=== PATIENT | male | born 1955 | race Caucasian/White ===

== ENCOUNTER 2018-03-26 10:35 | Inpatient (IN) ==
[2018-03-26] MEDS ORDERED: Bisacodyl 10 MG RECTAL SUPPOSITORY RC PRN (19:39)
[2018-03-27] MEDS: diazePAM 5 MG TABLET PO PRN (00:33)
[2018-03-27] MEDS: *HR* OxyCODONE Immed Rel 5 MG TABLET PO PRN ×5 (00:33→23:07)
[2018-03-27] MEDS: Multivit/Ca/Min/Fe/FA 1 TAB TABLET PO SCH (08:53)
[2018-03-27] MEDS: *HR* Metformin 500 MG TABLET PO SCH ×2 (08:53→17:30)
[2018-03-27] MEDS: Sennosides 8.6 MG TABLET PO SCH ×2 (08:53→20:02)
[2018-03-27 09:18] LABS: Basophils % 0.3 %; Eosinophils % 0.4 %; Hematocrit 33.2 % (37.5-50.1); Immature Granulocytes % 0.4 % (0-4); Lymphocytes # 2.2 K/mcL (0.6-4.6); Lymphocytes % 20.8 %; Mean Corpuscular HGB Conc 33.1 g/dL (31.6-35.5); Mean Corpuscular Hemoglobin 29.4 pg (28.0-33.3); Mean Corpuscular Volume 88.8 fL (83.0-100.0); Mean Platelet Volume 9.6 fL (9.4-12.4); Monocytes % 9.4 %; Neutrophils # 7.1 K/mcL (1.6-8.9); Platelet Count 225 K/mcL (140-400); Red Blood Count 3.74 M/mcL (4.19-5.50); Red Cell Distribution Width 14.1 % (11.5-14.5); Segmented Neutrophils % 68.7 %
[2018-03-27 09:22] LABS: INR 1.4; Prothrombin Time 15.7 Seconds (9.4-12.1)
[2018-03-27 09:36] LABS: BUN/Creatinine Ratio 23 (6-26); Blood Urea Nitrogen 13 mg/dL (8-23); Calcium 8.7 mg/dL (8.6-10.3); Carbon Dioxide 30 mEq/L (23-29); Chloride 97 mEq/L (98-107); Glucose 191 mg/dL (70-105); Osmolality,Calculated 283 (280-300); Potassium 3.9 mEq/L (3.5-5.1); Sodium 134 mEq/L (136-145); eGFR For Non-African Americans > 60 (> 60)
--- NOTE | 2018-03-27 10:40 | Internal Med History&Physical ---
Date of Encounter: 03/27/18 Time of Encounter: 10:00 Assessment and Plan (1) S/P spinal fusion Current visit: Yes Status: Acute Routine care/management per PT/OT/RT. (2) Physical deconditioning Current visit: Yes Status: Acute - Routine care and management per PT/OT/RT. (3) Diabetes type 2, controlled Current visit: Yes Status: Chronic Continue home metformin. Will also provide SSI and hypoglycemia protocol here. 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 Qualifiers: Hypertension type: essential hypertension Qualified Code(s): I10 - Essential (primary) hypertension (5) Hyperlipidemia Current visit: Yes Status: Chronic Continue home simvastatin. Qualifiers: Hyperlipidemia type: unspecified Qualified Code(s): E78.5 - Hyperlipidemia , unspecified (6) Hypothyroidism Current visit: Yes Status: Chronic Continue home levothyroxine. Qualifiers: Hypothyroidism type: unspecified Qualified Code(s): E03.9 - Hypothyroidism , unspecified Internal Medicine - H&P: HPI Chief complaint: rehab Admitted From: Hospital to Hospital Transfer History of present illness: Mr. Lewis is a 63 year old male who is now s/p spinal fusion at [facility] and has been transferred to us for rehab. At the time of this encounter, the patient has no particular concern and actually feels pretty well. In fact, the patient has been able to move his LE more than before. Patient reports no fever, chills , CP, palpitations, SOB, n/v, seizure, or bleeding symptoms over the past 24-48 hours. Past Med Surg Social Fam HX - Past Medical History Medical history: arthritis Psychiatric history: no psych history - Past Surgical History Additional surgical history: lumbar fusion - Social History Smoking Status: Former smoker Alcohol use: none Drug use: none - Additional Family History Additional family history: Aunt has DM. COPD runs in the family. Internal Medicine - H&P: Meds 3 Allergy/AdvReac Type Severity Reaction Status Date / Time SAM Inhibitors Allergy Unknown Cough Verified 03/27/18 00:21 amlodipine [From Norvasc] Allergy Swelling Verified 03/27/18 00:21 of Lip/Tongue/Throat gabapentin Allergy Hallucinati Verified 03/27/18 00:21 ng All Systems PM: A 10-system review of systems was performed and is negative for pertinent findings except as documented above in the HPI. Review of systems: 10 systems reviewed and (-) other than mentioned per HPI. - Constitutional Vitals: Temp Pulse Resp BP Pulse Ox 98.5 F 86 16 135/69 89 03/27/18 07:55 03/27/18 07:55 03/27/18 04:54 03/27/18 07:55 03/27/18 07:55 Exam: Gen: A&Ox3, NAD. HEENT: NCAT. Neck: No palpable lymphadenopathy or thyromegaly. CV: RRR, S1S2. No murmur. Capillary refill < 2 seconds. Pulm: CTAB. Abd: (+)BS. NDNT. Neuro: Generalized weakness, otherwise non-focal. Skin: No rash. Ext: No pitting edema. Internal Med - H&P Results - Labs CBC & Chem 7: 03/27/18 09:10 03/27/18 09:10 Labs: Short CBC 03/27/18 Range/Units 09:10 WBC 10.4 (4.3-11.1) K/mcL Hgb 11.0 L (12.9-16.9) g/dL Hct 33.2 L (37.5-50.1) % Plt Count 225 (140-400) K/mcL Neutrophils # 7.1 (1.6-8.9) K/mcL BMP 03/27/18 09:10 Sodium 134 L Potassium 3.9 Chloride 97 L Carbon Dioxide 30 H BUN 13 Creatinine 0.57 L Glucose 191 H Calcium 8.7
[2018-03-28] MEDS: *HR* OxyCODONE Immed Rel 5 MG TABLET PO PRN ×3 (03:51→20:03)
[2018-03-28 04:54] LABS: Hematocrit 30.7 % (37.5-50.1); Hemoglobin 10.4 g/dL (12.9-16.9); Mean Corpuscular HGB Conc 33.9 g/dL (31.6-35.5); Mean Corpuscular Hemoglobin 29.4 pg (28.0-33.3); Mean Corpuscular Volume 86.7 fL (83.0-100.0); Platelet Count 234 K/mcL (140-400); Red Blood Count 3.54 M/mcL (4.19-5.50); Red Cell Distribution Width 14.2 % (11.5-14.5)
--- NOTE | 2018-03-28 08:10 | Internal Med Progress Note ---
Date of Encounter: 03/28/18 Time of Encounter: 08:00 - Assessment and plan (1) S/P spinal fusion Current Visit: Yes Status: Acute Assessment and plan: Routine care/management per PT/OT/RT. (2) Physical deconditioning Current Visit: Yes Status: Acute Assessment and plan: - Routine care and management per PT/OT/RT. (3) Diabetes type 2, controlled Current Visit: Yes Status: Chronic Assessment and plan: Continue home metformin. Will also provide SSI and hypoglycemia protocol here. Qualifiers: Diabetes mellitus hcc coders insulin use: without hcc coders use Diabetes mellitus complication status: without complication Qualified Code(s): E11.9 - Type 2 diabetes mellitus without complications (4) Hypertension Current Visit: Yes Status: Acute Assessment and plan: Continue home losartan and metoprolol. Qualifiers: Hypertension type: essential hypertension Qualified Code(s): I10 - Essential (primary) hypertension (5) Hyperlipidemia Current Visit: Yes Status: Chronic Assessment and plan: Continue home simvastatin. Qualifiers: Hyperlipidemia type: unspecified Qualified Code(s): E78.5 - Hyperlipidemia , unspecified (6) Hypothyroidism Current Visit: Yes Status: Chronic Assessment and plan: Continue home levothyroxine. Qualifiers: Hypothyroidism type: unspecified Qualified Code(s): E03.9 - Hypothyroidism , unspecified - Time Spent With Patient less than 15 minutes - Subjective Interval history: Feeling "fine." Would like to drink. Overall no particular concern or complaint at this time. - Constitutional Vitals: Temp Pulse Resp BP Pulse Ox 98.3 F 69 16 133/76 95 03/28/18 08:00 03/28/18 08:00 03/28/18 08:00 03/28/18 08:00 03/28/18 08:00 Exam: Gen: A&Ox3, NAD. HEENT: NCAT. Neck: No palpable lymphadenopathy or thyromegaly. CV: RRR, S1S2. No murmur. Capillary refill < 2 seconds. Pulm: CTAB. Abd: (+)BS. NDNT. Neuro: Generalized weakness, otherwise non-focal. Skin: No rash. Ext: No pitting edema. Internal Medicine: Result - Labs CBC & Chem 7: 03/28/18 04:44 03/27/18 09:10 Labs: Short CBC 03/27/18 03/28/18 Range/Units 09:10 04:44 WBC 10.4 10.4 (4.3-11.1) K/mcL Hgb 11.0 L 10.4 L (12.9-16.9) g/dL Hct 33.2 L 30.7 L (37.5-50.1) % Plt Count 225 234 (140-400) K/mcL Neutrophils # 7.1 (1.6-8.9) K/mcL BMP 03/27/18 09:10 Sodium 134 L Potassium 3.9 Chloride 97 L Carbon Dioxide 30 H BUN 13 Creatinine 0.57 L Glucose 191 H Calcium 8.7 - ABG Interpretation ABG results: PT/INR, D-dimer PT 15.7 Seconds (9.4-12.1) H 03/27/18 09:10 Consult Discharge Plan - Plan Referrals: Tommy Ramos DO [Primary Care Provider] -
[2018-03-28] MEDS: *HR* Metformin 500 MG TABLET PO SCH ×2 (08:50→16:59)
[2018-03-28] MEDS: Multivit/Ca/Min/Fe/FA 1 TAB TABLET PO SCH (08:51)
[2018-03-28] MEDS: Sennosides 8.6 MG TABLET PO SCH ×2 (08:52→20:02)
[2018-03-28] MEDS ORDERED: Cyanocobalamin (B-12) 1,000 MCG TABLET PO ONE (09:00)
[2018-03-29] MEDS: *HR* OxyCODONE Immed Rel 5 MG TABLET PO PRN ×3 (00:28→19:33)
[2018-03-29 06:20] LABS: Basophils % 0.2 %; Eosinophils # 0.1 K/mcL (0.0-0.6); Eosinophils % 1.2 %; Hematocrit 30.2 % (37.5-50.1); Hemoglobin 10.3 g/dL (12.9-16.9); Immature Granulocytes % 0.6 % (0-4); Lymphocytes # 1.9 K/mcL (0.6-4.6); Mean Corpuscular HGB Conc 34.1 g/dL (31.6-35.5); Mean Corpuscular Hemoglobin 29.5 pg (28.0-33.3); Mean Corpuscular Volume 86.5 fL (83.0-100.0); Monocytes # 1.1 K/mcL (0.0-1.3); Monocytes % 10.6 %; Neutrophils # 6.8 K/mcL (1.6-8.9); Platelet Count 234 K/mcL (140-400); Red Blood Count 3.49 M/mcL (4.19-5.50); Red Cell Distribution Width 14.3 % (11.5-14.5); Segmented Neutrophils % 68.4 %
[2018-03-29 06:32] LABS: BUN/Creatinine Ratio 19 (6-26); Blood Urea Nitrogen 11 mg/dL (8-23); Calcium 8.4 mg/dL (8.6-10.3); Carbon Dioxide 31 mEq/L (23-29); Chloride 97 mEq/L (98-107); Glucose 131 mg/dL (70-105); Osmolality,Calculated 279 (280-300); Potassium 3.8 mEq/L (3.5-5.1); Sodium 134 mEq/L (136-145); eGFR For Non-African Americans > 60 (> 60)
[2018-03-29] MEDS: Sennosides 8.6 MG TABLET PO SCH ×2 (08:28→19:32)
[2018-03-29] MEDS: *HR* Metformin 500 MG TABLET PO SCH ×2 (08:28→17:07)
[2018-03-29] MEDS: Multivit/Ca/Min/Fe/FA 1 TAB TABLET PO SCH (08:29)
--- NOTE | 2018-03-29 10:36 | Internal Med Progress Note ---
Date of Encounter: 03/29/18 Time of Encounter: 10:00 - Assessment and plan (1) S/P spinal fusion Current Visit: Yes Status: Acute Assessment and plan: Routine care/management per PT/OT/RT. (2) Physical deconditioning Current Visit: Yes Status: Acute Assessment and plan: - Routine care and management per PT/OT/RT. (3) Diabetes type 2, controlled Current Visit: Yes Status: Chronic Assessment and plan: Continue home metformin. Will also provide SSI and hypoglycemia protocol here. 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 Qualifiers: Hypertension type: essential hypertension Qualified Code(s): I10 - Essential (primary) hypertension (5) Hyperlipidemia Current Visit: Yes Status: Chronic Assessment and plan: Continue home simvastatin. Qualifiers: Hyperlipidemia type: unspecified Qualified Code(s): E78.5 - Hyperlipidemia , unspecified (6) Hypothyroidism Current Visit: Yes Status: Chronic Assessment and plan: Continue home levothyroxine. Qualifiers: Hypothyroidism type: unspecified Qualified Code(s): E03.9 - Hypothyroidism , unspecified - Time Spent With Patient less than 15 minutes - Subjective Interval history: Feeling "fine." Would like to intensify PT. - Constitutional Vitals: Temp Pulse Resp BP Pulse Ox 99.0 F 75 18 165/75 94 03/29/18 07:05 03/29/18 07:05 03/29/18 07:05 03/29/18 07:05 03/29/18 07:05 Exam: Gen: A&Ox3, NAD. HEENT: NCAT. Neck: No palpable lymphadenopathy or thyromegaly. CV: RRR, S1S2. No murmur. Capillary refill < 2 seconds. Pulm: CTAB. Abd: (+)BS. NDNT. Neuro: Generalized weakness, otherwise non-focal. Skin: No rash. Ext: No pitting edema. Internal Medicine: Result - Labs CBC & Chem 7: 03/29/18 06:00 03/29/18 06:00 Labs: Short CBC 03/29/18 Range/Units 06:00 WBC 10.0 (4.3-11.1) K/mcL Hgb 10.3 L (12.9-16.9) g/dL Hct 30.2 L (37.5-50.1) % Plt Count 234 (140-400) K/mcL Neutrophils # 6.8 (1.6-8.9) K/mcL BMP 03/29/18 06:00 Sodium 134 L Potassium 3.8 Chloride 97 L Carbon Dioxide 31 H BUN 11 Creatinine 0.58 L Glucose 131 H Calcium 8.4 L - ABG Interpretation ABG results: PT/INR, D-dimer PT 15.7 Seconds (9.4-12.1) H 03/27/18 09:10 Consult Discharge Plan - Plan Referrals: Tommy Ramos DO [Primary Care Provider] -
[2018-03-30] MEDS: *HR* OxyCODONE Immed Rel 5 MG TABLET PO PRN ×4 (01:27→20:56)
[2018-03-30] MEDS: Sennosides 8.6 MG TABLET PO SCH ×2 (08:44→19:59)
[2018-03-30] MEDS: Multivit/Ca/Min/Fe/FA 1 TAB TABLET PO SCH (08:44)
[2018-03-30] MEDS: Aspirin 81 MG TAB.CHEW PO SCH (08:44)
[2018-03-30] MEDS: *HR* Metformin 500 MG TABLET PO SCH ×2 (08:44→18:08)
[2018-03-30] MEDS: *HR* Heparin 5,000 UNIT/ML VIAL SQ SCH ×2 (12:30→18:08)
--- NOTE | 2018-03-30 13:53 | Internal Med Progress Note ---
Date of Encounter: 03/30/18 Time of Encounter: 13:51 - Assessment and plan (1) S/P spinal fusion Current Visit: Yes Status: Acute Assessment and plan: Continue PT and OT. Will follow progress. Follow up with surgeon as scheduled. Continue current pain regimen. (2) Diabetes type 2, controlled Current Visit: Yes Status: Chronic Assessment and plan: Controlled with current medication. Monitor fingerstick blood sugars. Will adjust medications as necessary. Qualifiers: Diabetes mellitus retirement insulin use: without long term care pharmacist use Diabetes mellitus complication status: without complication Qualified Code(s): E11.9 - Type 2 diabetes mellitus without complications (3) Hypertension Current Visit: Yes Status: Acute Assessment and plan: Controlled with current medication. Monitor blood pressure. Qualifiers: Hypertension type: essential hypertension Qualified Code(s): I10 - Essential (primary) hypertension - Time Spent With Patient less than 15 minutes - Subjective Interval history: participating well with therapy. States pain is controlled with current pain medication. Denies fever, chills, nausea vomiting or diarrhea. No other complaints at this time. - Constitutional Vitals: Temp Pulse Resp BP Pulse Ox 98.1 F 85 16 144/73 96 03/30/18 08:45 03/30/18 08:45 03/30/18 08:45 03/30/18 08:45 03/30/18 08:45 General appearance: Present: cooperative, A&O X 3, pleasant, no acute distress, answers questions appropriately - Head Head exam: Present: atraumatic, normocephalic - Eye Eye exam: Present: PERRL, conjuntiva pink, sclera anicteric Pupils: Present: PERRL - Neck Neck exam general surgery: Present: supple, trachea midline. Absent: lymphadenopathy - Respiratory Respiratory exam: Present: CTAB. Absent: accessory muscle use, rales, rhonchi, wheezes - Cardiovascular Cardiovascular exam: Present: RRR, +S1, +S2. Absent: diastolic murmur, gallop, rubs, systolic murmur - GI/Abdominal GI/Abdominal exam: Present: normal bowel sounds, soft, no peritoneal signs. Absent: distended, tenderness - Extremities Exam Extremities exam: Present: warm, radial pulses palpable and symmetrical. Absent : calf tenderness, cyanotic, pedal edema - Incison Comments: Incision, dressing dry and intact. - Neurological Exam Neurological exam: Present: CN II-XII intact, oriented X3, no focal deficits. Absent: pronater drift, facial droop, speech deficit - Skin Skin exam: Present: dry, intact Internal Medicine: Result - Labs CBC & Chem 7: 03/29/18 06:00 03/29/18 06:00 - ABG Interpretation ABG results: PT/INR, D-dimer PT 15.7 Seconds (9.4-12.1) H 03/27/18 09:10 Consult Discharge Plan - Plan Referrals: Tommy Ramos DO [Primary Care Provider] -
[2018-03-31] MEDS: *HR* OxyCODONE Immed Rel 5 MG TABLET PO PRN ×4 (01:59→19:59)
[2018-03-31] MEDS: *HR* Heparin 5,000 UNIT/ML VIAL SQ SCH ×2 (05:42→18:36)
[2018-03-31] MEDS: Aspirin 81 MG TAB.CHEW PO SCH (08:31)
[2018-03-31] MEDS: Multivit/Ca/Min/Fe/FA 1 TAB TABLET PO SCH (08:31)
[2018-03-31] MEDS: *HR* Metformin 500 MG TABLET PO SCH ×2 (08:32→18:36)
[2018-03-31] MEDS: Sennosides 8.6 MG TABLET PO SCH ×2 (08:32→19:59)
--- NOTE | 2018-03-31 13:46 | Internal Med Progress Note ---
Date of Encounter: 03/31/18 Time of Encounter: 13:43 - Assessment and plan (1) S/P spinal fusion Current Visit: Yes Status: Acute Assessment and plan: Continue PT and OT. Will follow progress. Follow up with surgeon as scheduled on 04/07. Continue current pain regimen. (2) Diabetes type 2, controlled Current Visit: Yes Status: Chronic Assessment and plan: Controlled with current medication. Monitor fingerstick blood sugars. Will adjust medications as necessary. Qualifiers: Diabetes mellitus penitentiary insulin use: without penitentiary use Diabetes mellitus complication status: without complication Qualified Code(s): E11.9 - Type 2 diabetes mellitus without complications (3) Hypertension Current Visit: Yes Status: Acute Assessment and plan: Controlled with current medication. Monitor blood pressure. Qualifiers: Hypertension type: essential hypertension Qualified Code(s): I10 - Essential (primary) hypertension - Time Spent With Patient less than 15 minutes - Subjective Interval history: participating well with therapy. States pain is controlled with current pain medication. Denies fever, chills, nausea vomiting or diarrhea. Has pain in right leg and weakness. States that he had this prior to surgery. Explain that it is a lot to remember on how to safely ambulate, transfer and use Walker in wheelchair in therapy. Has not been used to doing things this way at home. Last bowel movement was prior to admission. Will take suppository today. Maintaining appetite and hydration. - Constitutional Vitals: Temp Pulse Resp BP Pulse Ox 98.3 F 72 17 163/78 92 03/31/18 07:11 03/31/18 07:11 03/31/18 07:11 03/31/18 07:11 03/31/18 07:11 General appearance: Present: cooperative, A&O X 3, pleasant, no acute distress, answers questions appropriately - Head Head exam: Present: atraumatic, normocephalic - Eye Eye exam: Present: PERRL, conjuntiva pink, sclera anicteric Pupils: Present: PERRL - Neck Neck exam general surgery: Present: supple, trachea midline. Absent: lymphadenopathy - Respiratory Respiratory exam: Present: CTAB. Absent: accessory muscle use, rales, rhonchi, wheezes - Cardiovascular Cardiovascular exam: Present: RRR, +S1, +S2. Absent: diastolic murmur, gallop, rubs, systolic murmur - GI/Abdominal GI/Abdominal exam: Present: normal bowel sounds, soft, no peritoneal signs. Absent: distended, tenderness - Extremities Exam Extremities exam: Present: warm, radial pulses palpable and symmetrical. Absent : calf tenderness, cyanotic, pedal edema - Incison Comments: Lumbar incision dressing dry and intact. - Neurological Exam Neurological exam: Present: CN II-XII intact, oriented X3, no focal deficits. Absent: pronater drift, facial droop, speech deficit - Skin Skin exam: Present: dry, intact Internal Medicine: Result - Labs CBC & Chem 7: 03/29/18 06:00 03/29/18 06:00 - ABG Interpretation ABG results: PT/INR, D-dimer PT 15.7 Seconds (9.4-12.1) H 03/27/18 09:10 Consult Discharge Plan - Plan Referrals: Tommy Ramos DO [Primary Care Provider] -
[2018-04-01] MEDS: *HR* OxyCODONE Immed Rel 5 MG TABLET PO PRN ×4 (00:52→21:10)
[2018-04-01] MEDS: *HR* Heparin 5,000 UNIT/ML VIAL SQ SCH ×2 (05:58→17:19)
[2018-04-01] MEDS: *HR* Metformin 500 MG TABLET PO SCH ×2 (08:15→17:17)
[2018-04-01] MEDS: Multivit/Ca/Min/Fe/FA 1 TAB TABLET PO SCH (08:15)
[2018-04-01] MEDS: Aspirin 81 MG TAB.CHEW PO SCH (08:15)
[2018-04-01] MEDS: Sennosides 8.6 MG TABLET PO SCH ×2 (08:16→20:02)
--- NOTE | 2018-04-01 12:10 | Internal Med Progress Note ---
Date of Encounter: 04/01/18 Time of Encounter: 12:08 - Assessment and plan (1) S/P spinal fusion Current Visit: Yes Status: Acute Assessment and plan: No acute issues. Patient's lumbar incision remains healthy and appears to be healing well. Patient continues to have moderate weakness to bilateral lower extremities continues to show right foot drop. Patient also states that he continues to have some decreased sensation to the right anterior lateral leg. No acute neurological deficits noted since surgery. Patient continues to have pain to his lower back and right leg which are likely surgical pain. No acute radicular symptoms noted. Patient states that physical therapy has been progressing well. (2) Diabetes type 2, controlled Current Visit: Yes Status: Chronic Assessment and plan: No acute issues. Patient's fingersticks have remained less than 150 on most checks. We will continue with current coverage. Qualifiers: Diabetes mellitus senior living insulin use: without intermediate teacher use Diabetes mellitus complication status: without complication Qualified Code(s): E11.9 - Type 2 diabetes mellitus without complications (3) Hypertension Current Visit: Yes Status: Acute Assessment and plan: Vital signs are stable. We will continue with current medications. Qualifiers: Hypertension type: essential hypertension Qualified Code(s): I10 - Essential (primary) hypertension - Time Spent With Patient less than 15 minutes - Subjective Interval history: Patient currently states that he continues to have moderate pain to his lower back with some radiation to the right hip. Patient states that his symptoms of radicular pain that it radiated down the right leg has subsided somewhat since his surgery. Patient also states he continues to have some decreased sensation to his right lateral leg, which remains unchanged since preop. Patient states that his pain has been fairly well-controlled with current oral medications and that his pain usually is triggered by mobilization or when sitting in a chair too long.. States that physical therapy has been progressing well. - Constitutional Vitals: Temp Pulse Resp BP Pulse Ox 98.3 F 74 17 158/77 96 04/01/18 07:21 04/01/18 07:21 04/01/18 07:21 04/01/18 07:21 04/01/18 07:21 General appearance: Present: cooperative, A&O X 3, pleasant, no acute distress, answers questions appropriately - Head Head exam: Present: atraumatic, normocephalic - Eye Eye exam: Present: PERRL, conjuntiva pink, sclera anicteric Pupils: Present: PERRL - Neck Neck exam general surgery: Present: supple, trachea midline. Absent: lymphadenopathy - Respiratory Respiratory exam: Present: CTAB. Absent: accessory muscle use, rales, rhonchi, wheezes - Cardiovascular Cardiovascular exam: Present: RRR, +S1, +S2. Absent: diastolic murmur, gallop, rubs, systolic murmur - GI/Abdominal GI/Abdominal exam: Present: normal bowel sounds, soft, no peritoneal signs. Absent: distended, tenderness - Extremities Exam Extremities exam: Present: warm, radial pulses palpable and symmetrical. Absent : calf tenderness, cyanotic, pedal edema - Back Exam Additional comments: Patient has a midline lumbar incision that appears healthy, intact and to be healing well - Neurological Exam Neurological exam: Present: CN II-XII intact, oriented X3. Absent: pronater drift, facial droop, speech deficit Additional comments: Patient continues to have moderate weakness to bilateral lower extremities at 4/ 5. Noted right foot drop with dorsiflexion of 1/5. Slight decrease in sensation noted to right anterior lateral leg. - Skin Skin exam: Present: dry, intact Internal Medicine: Result - Labs CBC & Chem 7: 03/29/18 06:00 03/29/18 06:00 - ABG Interpretation ABG results: PT/INR, D-dimer PT 15.7 Seconds (9.4-12.1) H 03/27/18 09:10 Consult Discharge Plan - Plan Referrals: Tommy Ramos DO [Primary Care Provider] -
[2018-04-01] MEDS: diazePAM 5 MG TABLET PO PRN (12:52)
[2018-04-01 19:13] LABS: Basophils % 0.2 %; Eosinophils # 0.2 K/mcL (0.0-0.6); Hematocrit 29.8 % (37.5-50.1); Hemoglobin 10.1 g/dL (12.9-16.9); Immature Granulocytes % 0.8 % (0-4); Lymphocytes % 20.2 %; Mean Corpuscular HGB Conc 33.9 g/dL (31.6-35.5); Mean Corpuscular Hemoglobin 29.1 pg (28.0-33.3); Mean Corpuscular Volume 85.9 fL (83.0-100.0); Mean Platelet Volume 8.7 fL (9.4-12.4); Monocytes # 0.9 K/mcL (0.0-1.3); Monocytes % 9.6 %; Neutrophils # 6.6 K/mcL (1.6-8.9); Platelet Count 262 K/mcL (140-400); Red Blood Count 3.47 M/mcL (4.19-5.50); Red Cell Distribution Width 14.2 % (11.5-14.5); Segmented Neutrophils % 67.2 %
[2018-04-01 20:15] LABS: Bilirubin,Urine Negative (Negative); Blood,Urine Negative (Negative); Clarity,Urine Clear (Clear); Color,Urine Yellow (Yellow); Glucose,Urine (UA) Normal (Normal); Ketones,Urine Negative (Negative); Leukocyte Esterase,Urine Negative (Negative); Nitrite,Urine Negative (Negative); PH,Urine 7.5 pH Units (5.0-8.0); Protein,Urine Negative (Neg-Trace); Specific Gravity,Urine 1.015 (1.010-1.025)
[2018-04-02] MEDS: *HR* OxyCODONE Immed Rel 5 MG TABLET PO PRN ×2 (01:54→13:22)
[2018-04-02] MEDS: *HR* Heparin 5,000 UNIT/ML VIAL SQ SCH ×2 (06:10→17:44)
[2018-04-02] MEDS: *HR* Metformin 500 MG TABLET PO SCH ×2 (08:16→17:44)
[2018-04-02] MEDS: Aspirin 81 MG TAB.CHEW PO SCH (08:16)
[2018-04-02] MEDS: Sennosides 8.6 MG TABLET PO SCH ×2 (08:17→19:42)
[2018-04-02] MEDS: diazePAM 5 MG TABLET PO PRN ×2 (08:17→17:44)
[2018-04-02] MEDS: Multivit/Ca/Min/Fe/FA 1 TAB TABLET PO SCH (08:17)
--- NOTE | 2018-04-02 15:39 | Internal Med Progress Note ---
Date of Encounter: 04/02/18 Time of Encounter: 15:37 - Assessment and plan (1) S/P spinal fusion Current Visit: Yes Status: Acute Assessment and plan: No acute issues. Patient's lumbar incision remains healthy and appears to be healing well. Patient continues to have moderate weakness to bilateral lower extremities continues to show right foot drop. Patient also states that he continues to have some decreased sensation to the right anterior lateral leg. No acute neurological deficits noted since surgery. Patient continues to have pain to his lower back and right leg which are likely surgical pain. Patient states he continues to have acute radicular symptoms of pain that radiates down the right hip and some muscle spasms that accompany. Patient states that physical therapy has been progressing well. (2) Diabetes type 2, controlled Current Visit: Yes Status: Chronic Assessment and plan: No acute issues. Patient's fingersticks have remained less than 150 on most checks. We will continue with current coverage. Qualifiers: Diabetes mellitus group home insulin use: without petroleum terminal plant operator use Diabetes mellitus complication status: without complication Qualified Code(s): E11.9 - Type 2 diabetes mellitus without complications (3) Hypertension Current Visit: Yes Status: Acute Assessment and plan: Vital signs are stable. We will continue with current medications. Qualifiers: Hypertension type: essential hypertension Qualified Code(s): I10 - Essential (primary) hypertension (4) Constipation Current Visit: Yes Status: Acute Assessment and plan: Patient with c/o no BM in 3 days. States he has not had much urge for BM. Denies any abdominal cramping or discomforts. Will evaluate current scheduled laxatives. Qualifiers: Constipation type: unspecified constipation type Qualified Code(s): K59.00 - Constipation, unspecified - Time Spent With Patient less than 15 minutes - Subjective Interval history: Patient currently states that he continues to have occasional moderate pain to his lower back with some radiation to the right hip. Patient states that his symptoms of radicular pain that it radiated down the right leg has subsided somewhat since his surgery. Patient also states he continues to have some decreased sensation to his right lateral leg, which remains unchanged since preop. Patient states that his pain has been fairly well-controlled with current oral medications and that his pain usually is triggered by mobilization or when sitting in a chair too long. Patient did states that he had an episode of muscle spasm last evening, but this has resolved today. Complaints of no BM in 3 days. Denies any abdominal cramping or pain. States that physical therapy has been progressing well. - Constitutional Vitals: Temp Pulse Resp BP Pulse Ox 98.2 F 71 16 158/75 93 04/02/18 07:07 04/02/18 07:07 04/02/18 07:07 04/02/18 07:07 04/02/18 07:07 General appearance: Present: cooperative, A&O X 3, pleasant, no acute distress, answers questions appropriately - Head Head exam: Present: atraumatic, normocephalic - Eye Eye exam: Present: PERRL, conjuntiva pink, sclera anicteric Pupils: Present: PERRL - Neck Neck exam general surgery: Present: supple, trachea midline. Absent: lymphadenopathy - Respiratory Respiratory exam: Present: CTAB. Absent: accessory muscle use, rales, rhonchi, wheezes - Cardiovascular Cardiovascular exam: Present: RRR, +S1, +S2. Absent: diastolic murmur, gallop, rubs, systolic murmur - GI/Abdominal GI/Abdominal exam: Present: normal bowel sounds, soft, no peritoneal signs. Absent: distended, tenderness - Extremities Exam Extremities exam: Present: warm, radial pulses palpable and symmetrical. Absent : calf tenderness, cyanotic, pedal edema - Back Exam Additional comments: midline lumbar incision appears healthy and intact. No drainage. No erythema - Neurological Exam Neurological exam: Present: CN II-XII intact, oriented X3, no focal deficits. Absent: pronater drift, facial droop, speech deficit Additional comments: No acute neurological deficits noted on exam. Patient does complain of occasional ventricular symptoms with occasional moderate sharp pain that radiates down his right hip and has also related issues with muscle spasms to his lower back. Patient continues to state slight decrease in sensation to the right lateral leg - Skin Skin exam: Present: dry, intact Internal Medicine: Result - Labs CBC & Chem 7: 04/01/18 19:06 03/29/18 06:00 Labs: Short CBC 04/01/18 Range/Units 19:06 WBC 9.8 (4.3-11.1) K/mcL Hgb 10.1 L (12.9-16.9) g/dL Hct 29.8 L (37.5-50.1) % Plt Count 262 (140-400) K/mcL Neutrophils # 6.6 (1.6-8.9) K/mcL Urine 04/01/18 Range/Units 20:00 Urine Color Yellow (Yellow) Urine Clarity Clear (Clear) Urine pH 7.5 (5.0-8.0) pH Units Ur Specific [place] 1.015 (1.010-1.025) Urine Protein Negative (Neg-Trace) mg/dL Urine Glucose (UA) Normal (Normal) mg/dL - ABG Interpretation ABG results: PT/INR, D-dimer PT 15.7 Seconds (9.4-12.1) H 03/27/18 09:10 Consult Discharge Plan - Plan Referrals: Tommy Ramos DO [Primary Care Provider] -
[2018-04-02] MEDS: tiZANidine 4 MG TABLET PO PRN (19:42)
[2018-04-03] MEDS: *HR* OxyCODONE Immed Rel 5 MG TABLET PO PRN ×4 (00:36→20:59)
[2018-04-03] MEDS: *HR* Heparin 5,000 UNIT/ML VIAL SQ SCH ×2 (06:31→18:51)
[2018-04-03] MEDS: Multivit/Ca/Min/Fe/FA 1 TAB TABLET PO SCH (07:50)
[2018-04-03] MEDS: Aspirin 81 MG TAB.CHEW PO SCH (07:50)
[2018-04-03] MEDS: *HR* Metformin 500 MG TABLET PO SCH ×2 (07:50→18:51)
[2018-04-03] MEDS: Sennosides 8.6 MG TABLET PO SCH ×2 (07:50→21:03)
[2018-04-03] MEDS: Acetaminophen 325 MG TABLET PO PRN (10:44)
--- NOTE | 2018-04-03 15:26 | Internal Med Progress Note ---
Date of Encounter: 04/03/18 Time of Encounter: 15:23 - Assessment and plan (1) S/P spinal fusion Current Visit: Yes Status: Acute Assessment and plan: Patient is doing well and will continue with therapies as planned. He is still having some weakness and is to follow-up in about 3 days with his surgeon. The question has been whether or not he should have progress physically, then he has. (2) Diabetes type 2, controlled Current Visit: Yes Status: Chronic Assessment and plan: He is clinically stable with only mild elevations of glucose. He has asked that we check his sugar only once daily. We have complied. Qualifiers: Diabetes mellitus bending roll hand insulin use: without bending roll hand use Diabetes mellitus complication status: without complication Qualified Code(s): E11.9 - Type 2 diabetes mellitus without complications (3) Hypertension Current Visit: Yes Status: Acute Assessment and plan: Clinically stable. We will continue home regimen and follow. Qualifiers: Hypertension type: essential hypertension Qualified Code(s): I10 - Essential (primary) hypertension (4) Hyperlipidemia Current Visit: Yes Status: Chronic Assessment and plan: Clinically stable. We will continue home regimen and follow. Qualifiers: Hyperlipidemia type: unspecified Qualified Code(s): E78.5 - Hyperlipidemia , unspecified (5) Hypothyroidism Current Visit: Yes Status: Chronic Assessment and plan: Clinically stable. We will continue home regimen and follow. Qualifiers: Hypothyroidism type: unspecified Qualified Code(s): E03.9 - Hypothyroidism , unspecified (6) Constipation Current Visit: Yes Status: Acute Assessment and plan: Improved, as noted, will follow. Qualifiers: Constipation type: unspecified constipation type Qualified Code(s): K59.00 - Constipation, unspecified - Subjective Interval history: Patient is without complaint. He had a bowel movement and feels good that this is finally working. He is doing well with therapies and has fatigue, still as before. Patient has no complaint of chest discomfort, dyspnea, orthopnea, palpitations, nausea or vomiting, constipation or diarrhea, other changes in bowel habits, difficulty with urination, rash or itching, or other new complaints, except as mentioned above. Review of systems is otherwise negative. I discussed management of her care with nursing staff. - Constitutional Vitals: Temp Pulse Resp BP Pulse Ox 98.5 F 76 17 161/77 95 04/03/18 07:21 04/03/18 07:21 04/03/18 07:21 04/03/18 07:21 04/03/18 07:21 General appearance: Present: cooperative, pleasant, answers questions appropriately Exam: Examination: (Except as mentioned above): General: In no apparent distress. Alert and oriented 3. Nondiaphoretic. Head: Atraumatic and normocephalic. Respiratory: No use of accessory muscles. Lungs are clear throughout. Normal airflow. Cardiovascular: Regular rate and rhythm without murmur appreciated. Abdomen: Bowel sounds are normal. No hepatosplenomegaly mass or tenderness appreciated. Patient is examined upright in chair and this also limits exam.Obese and therefore difficult to palpate deeply. Extremities: No cyanosis clubbing or edema. Skin: Warm and non-diaphoretic with no new lesions noted. Internal Medicine: Result - Labs CBC & Chem 7: 04/01/18 19:06 03/29/18 06:00 - ABG Interpretation ABG results: PT/INR, D-dimer PT 15.7 Seconds (9.4-12.1) H 03/27/18 09:10 Consult Discharge Plan - Plan Referrals: Tommy Ramos DO [Primary Care Provider] -
[2018-04-03] MEDS: tiZANidine 4 MG TABLET PO PRN (21:01)
[2018-04-04] MEDS: *HR* Heparin 5,000 UNIT/ML VIAL SQ SCH ×2 (06:32→17:18)
[2018-04-04] MEDS: *HR* Metformin 500 MG TABLET PO SCH ×2 (08:35→17:13)
[2018-04-04] MEDS: Acetaminophen 325 MG TABLET PO PRN ×3 (08:36→19:55)
[2018-04-04] MEDS: Sennosides 8.6 MG TABLET PO SCH ×2 (08:36→19:54)
[2018-04-04] MEDS: Aspirin 81 MG TAB.CHEW PO SCH (08:36)
[2018-04-04] MEDS: Multivit/Ca/Min/Fe/FA 1 TAB TABLET PO SCH (08:36)
--- NOTE | 2018-04-04 10:17 | Internal Med Progress Note ---
Date of Encounter: 04/04/18 Time of Encounter: 10:14 - Assessment and plan (1) S/P spinal fusion Current Visit: Yes Status: Acute Assessment and plan: Continue PT and OT. Will follow progress. Follow up with surgeon as scheduled on 04/07. Continue current pain regimen. (2) Diabetes type 2, controlled Current Visit: Yes Status: Chronic Assessment and plan: Controlled with current medication. Monitor fingerstick blood sugars. Will adjust medications as necessary. Qualifiers: Diabetes mellitus fpc insulin use: without relays draftsperson use Diabetes mellitus complication status: without complication Qualified Code(s): E11.9 - Type 2 diabetes mellitus without complications (3) Hypertension Current Visit: Yes Status: Acute Assessment and plan: Controlled with current medication. Monitor blood pressure. Qualifiers: Hypertension type: essential hypertension Qualified Code(s): I10 - Essential (primary) hypertension - Time Spent With Patient less than 15 minutes - Subjective Interval history: at bedside. participating well with therapy. States pain is controlled with current pain medication. Denies fever, chills, nausea vomiting or diarrhea. Has pain in right leg and weakness. States that he had this prior to surgery. Last bowel movement was yesterday. Maintaining appetite and hydration. - Constitutional Vitals: Temp Pulse Resp BP Pulse Ox 98.9 F 68 15 144/75 94 04/04/18 07:00 04/04/18 07:00 04/04/18 07:00 04/04/18 07:00 04/04/18 07:00 General appearance: Present: cooperative, pleasant, answers questions appropriately - Head Head exam: Present: atraumatic, normocephalic - Eye Eye exam: Present: PERRL, conjuntiva pink, sclera anicteric Pupils: Present: PERRL - Neck Neck exam general surgery: Present: supple, trachea midline. Absent: lymphadenopathy - Respiratory Respiratory exam: Present: CTAB. Absent: accessory muscle use, rales, rhonchi, wheezes - Cardiovascular Cardiovascular exam: Present: RRR, +S1, +S2. Absent: diastolic murmur, gallop, rubs, systolic murmur - GI/Abdominal GI/Abdominal exam: Present: normal bowel sounds, soft, no peritoneal signs. Absent: distended, tenderness - Extremities Exam Extremities exam: Present: warm, radial pulses palpable and symmetrical. Absent : calf tenderness, cyanotic, pedal edema - Neurological Exam Neurological exam: Present: CN II-XII intact, oriented X3, no focal deficits. Absent: pronater drift, facial droop, speech deficit - Skin Skin exam: Present: dry, intact Internal Medicine: Result - Labs CBC & Chem 7: 04/01/18 19:06 03/29/18 06:00 - ABG Interpretation ABG results: PT/INR, D-dimer PT 15.7 Seconds (9.4-12.1) H 03/27/18 09:10 Consult Discharge Plan - Plan Referrals: Tommy Ramos DO [Primary Care Provider] -
[2018-04-05] MEDS: *HR* OxyCODONE Immed Rel 5 MG TABLET PO PRN (01:38)
[2018-04-05] MEDS: *HR* Heparin 5,000 UNIT/ML VIAL SQ SCH ×2 (06:02→17:47)
[2018-04-05 06:20] LABS: Basophils % 0.4 %; Eosinophils # 0.3 K/mcL (0.0-0.6); Eosinophils % 3.4 %; Hematocrit 33.7 % (37.5-50.1); Immature Granulocytes % 0.7 % (0-4); Lymphocytes # 2.1 K/mcL (0.6-4.6); Mean Corpuscular HGB Conc 32.6 g/dL (31.6-35.5); Mean Corpuscular Hemoglobin 28.1 pg (28.0-33.3); Mean Platelet Volume 8.9 fL (9.4-12.4); Monocytes # 0.8 K/mcL (0.0-1.3); Monocytes % 8.6 %; Neutrophils # 6.1 K/mcL (1.6-8.9); Platelet Count 360 K/mcL (140-400); Red Blood Count 3.92 M/mcL (4.19-5.50); Segmented Neutrophils % 64.9 %
[2018-04-05 06:39] LABS: BUN/Creatinine Ratio 17 (6-26); Blood Urea Nitrogen 11 mg/dL (8-23); Calcium 9.3 mg/dL (8.6-10.3); Carbon Dioxide 28 mEq/L (23-29); Chloride 99 mEq/L (98-107); Glucose 120 mg/dL (70-105); Osmolality,Calculated 281 (280-300); Potassium 4.3 mEq/L (3.5-5.1); Sodium 135 mEq/L (136-145); eGFR For Non-African Americans > 60 (> 60)
[2018-04-05] MEDS: Acetaminophen 325 MG TABLET PO PRN ×2 (07:38→14:10)
[2018-04-05] MEDS: Multivit/Ca/Min/Fe/FA 1 TAB TABLET PO SCH (07:38)
[2018-04-05] MEDS: Aspirin 81 MG TAB.CHEW PO SCH (07:38)
[2018-04-05] MEDS: *HR* Metformin 500 MG TABLET PO SCH ×2 (07:38→17:46)
[2018-04-05] MEDS: diazePAM 5 MG TABLET PO PRN ×2 (07:38→14:10)
[2018-04-05] MEDS: Sennosides 8.6 MG TABLET PO SCH ×2 (07:38→20:16)
--- NOTE | 2018-04-05 12:00 | Internal Med Progress Note ---
Date of Encounter: 04/05/18 Time of Encounter: 11:58 - Assessment and plan (1) S/P spinal fusion Current Visit: Yes Status: Acute Assessment and plan: We will continue to move forward with therapies. He is to have a follow-up surgical appointment in a couple of days. Modified medication, as noted. (2) Diabetes type 2, controlled Current Visit: Yes Status: Chronic Assessment and plan: Clinically stable. Will follow.. Qualifiers: Diabetes mellitus group home insulin use: without superintendent terminal use Diabetes mellitus complication status: without complication Qualified Code(s): E11.9 - Type 2 diabetes mellitus without complications (3) Hypertension Current Visit: Yes Status: Acute Assessment and plan: Clinically stable. We will continue home regimen and follow. Qualifiers: Hypertension type: essential hypertension Qualified Code(s): I10 - Essential (primary) hypertension (4) Hyperlipidemia Current Visit: Yes Status: Chronic Assessment and plan: Clinically stable. We will continue home regimen and follow. Qualifiers: Hyperlipidemia type: unspecified Qualified Code(s): E78.5 - Hyperlipidemia , unspecified (5) Hypothyroidism Current Visit: Yes Status: Chronic Assessment and plan: Clinically stable. We will continue home regimen and follow. Qualifiers: Hypothyroidism type: unspecified Qualified Code(s): E03.9 - Hypothyroidism , unspecified (6) Constipation Current Visit: Yes Status: Acute Assessment and plan: Resolved clinically on medications. w. Qualifiers: Constipation type: unspecified constipation type Qualified Code(s): K59.00 - Constipation, unspecified - Subjective Interval history: The patient had problems with pain during physical therapy this morning. After a pain pill and with ongoing therapy his pain improved. Discussed with nursing and he seems resistant to pain medicine. We will try Ultram and get him off the OxyCodone as he seems to be concerned about this. Patient has no complaint of chest discomfort, dyspnea, orthopnea, palpitations, nausea or vomiting, constipation or diarrhea, other changes in bowel habits, difficulty with urination, rash or itching, or other new complaints, except as mentioned above. Review of systems is otherwise negative. I discussed management of her care with nursing staff. - Constitutional Vitals: Temp Pulse Resp BP Pulse Ox 98.6 F 70 16 158/87 96 04/05/18 07:27 04/05/18 07:27 04/05/18 07:27 04/05/18 07:27 04/05/18 07:27 General appearance: Present: cooperative, pleasant, answers questions appropriately Internal Medicine: Result - Labs CBC & Chem 7: 04/05/18 04:55 04/05/18 04:55 Labs: Short CBC 04/05/18 Range/Units 04:55 WBC 9.4 (4.3-11.1) K/mcL Hgb 11.0 L (12.9-16.9) g/dL Hct 33.7 L (37.5-50.1) % Plt Count 360 (140-400) K/mcL Neutrophils # 6.1 (1.6-8.9) K/mcL BMP 04/05/18 04:55 Sodium 135 L Potassium 4.3 Chloride 99 Carbon Dioxide 28 BUN 11 Creatinine 0.63 L Glucose 120 H Calcium 9.3 - ABG Interpretation ABG results: PT/INR, D-dimer PT 15.7 Seconds (9.4-12.1) H 03/27/18 09:10 Consult Discharge Plan - Plan Referrals: Tommy Ramos DO [Primary Care Provider] -
[2018-04-05] MEDS ORDERED: traMADol 50 MG TABLET PO PRN (17:40)
[2018-04-05] MEDS: traMADol 50 MG TABLET PO PRN (22:46)
[2018-04-06] MEDS: *HR* Heparin 5,000 UNIT/ML VIAL SQ SCH ×2 (06:28→17:07)
[2018-04-06] MEDS: *HR* Metformin 500 MG TABLET PO SCH ×2 (08:41→17:07)
[2018-04-06] MEDS: Aspirin 81 MG TAB.CHEW PO SCH (08:41)
[2018-04-06] MEDS: Multivit/Ca/Min/Fe/FA 1 TAB TABLET PO SCH (08:41)
[2018-04-06] MEDS: Sennosides 8.6 MG TABLET PO SCH ×2 (08:41→19:57)
[2018-04-06] MEDS: tiZANidine 4 MG TABLET PO PRN (08:46)
--- NOTE | 2018-04-06 11:03 | Internal Med Progress Note ---
Date of Encounter: 04/06/18 Time of Encounter: 11:01 - Assessment and plan (1) S/P spinal fusion Current Visit: Yes Status: Acute Assessment and plan: Continue PT and OT. Will follow progress. Follow up with surgeon as scheduled on 04/07. Continue current pain regimen. (2) Diabetes type 2, controlled Current Visit: Yes Status: Chronic Assessment and plan: Controlled with current medication. Monitor fingerstick blood sugars. Will adjust medications as necessary. Qualifiers: Diabetes mellitus custodial insulin use: without custodial use Diabetes mellitus complication status: without complication Qualified Code(s): E11.9 - Type 2 diabetes mellitus without complications (3) Hypertension Current Visit: Yes Status: Acute Assessment and plan: Controlled with current medication. Monitor blood pressure. Qualifiers: Hypertension type: essential hypertension Qualified Code(s): I10 - Essential (primary) hypertension - Time Spent With Patient less than 15 minutes - Subjective Interval history: participating well with therapy. Denies fever, chills, nausea vomiting or diarrhea. Last bowel movement was yesterday. Maintaining appetite and hydration. Change from oxycodone to tramadol yesterday for pain control. States increased pain through the night and having trouble getting comfortable. Pain was more and right hip area. Pain has improved this morning and is able to participate in therapy. Scheduled to follow up with surgeon tomorrow. - Constitutional Vitals: Temp Pulse Resp BP Pulse Ox 98.3 F 67 18 158/82 92 04/06/18 07:01 04/06/18 07:01 04/06/18 07:01 04/06/18 07:01 04/06/18 07:01 General appearance: Present: cooperative, pleasant, answers questions appropriately - Head Head exam: Present: atraumatic, normocephalic - Eye Eye exam: Present: PERRL, conjuntiva pink, sclera anicteric Pupils: Present: PERRL - Neck Neck exam general surgery: Present: supple, trachea midline. Absent: lymphadenopathy - Respiratory Respiratory exam: Present: CTAB. Absent: accessory muscle use, rales, rhonchi, wheezes - Cardiovascular Cardiovascular exam: Present: RRR, +S1, +S2. Absent: diastolic murmur, gallop, rubs, systolic murmur - GI/Abdominal GI/Abdominal exam: Present: normal bowel sounds, soft, no peritoneal signs. Absent: distended, tenderness - Extremities Exam Extremities exam: Present: warm, radial pulses palpable and symmetrical. Absent : calf tenderness, cyanotic, pedal edema - Incison Comments: Lumbar incision well approximated, no drainage. No sign of infection. - Neurological Exam Neurological exam: Present: CN II-XII intact, oriented X3, no focal deficits. Absent: pronater drift, facial droop, speech deficit - Skin Skin exam: Present: dry, intact Internal Medicine: Result - Labs CBC & Chem 7: 04/05/18 04:55 04/05/18 04:55 - ABG Interpretation ABG results: PT/INR, D-dimer PT 15.7 Seconds (9.4-12.1) H 03/27/18 09:10 Consult Discharge Plan - Plan Referrals: Tommy Ramos DO [Primary Care Provider] -
[2018-04-06] MEDS: Acetaminophen 325 MG TABLET PO PRN ×2 (13:38→21:33)
[2018-04-07] MEDS: *HR* Heparin 5,000 UNIT/ML VIAL SQ SCH ×2 (06:00→17:29)
[2018-04-07] MEDS: Sennosides 8.6 MG TABLET PO SCH ×2 (08:20→20:04)
[2018-04-07] MEDS: Multivit/Ca/Min/Fe/FA 1 TAB TABLET PO SCH (08:20)
[2018-04-07] MEDS: Aspirin 81 MG TAB.CHEW PO SCH (08:20)
[2018-04-07] MEDS: *HR* Metformin 500 MG TABLET PO SCH ×2 (08:20→17:10)
--- NOTE | 2018-04-07 09:00 | Internal Med Progress Note ---
Date of Encounter: 04/07/18 Time of Encounter: 08:53 - Assessment and plan (1) S/P spinal fusion Current Visit: Yes Status: Acute Assessment and plan: No acute issues. Patient's lumbar incision remains healthy and appears to be healing well. Patient continues to have moderate weakness to bilateral lower extremities continues to show right foot drop. Patient also states that he continues to have some decreased sensation to the right anterior lateral leg. No acute neurological deficits noted since surgery. Patient continues to have slight pain to his lower back and right leg which are likely surgical pain. Patient states he continues to have acute radicular symptoms of pain that radiates down the right hip. Patient states that his strength and physical therapy has been progressing well. (2) Diabetes type 2, controlled Current Visit: Yes Status: Chronic Assessment and plan: No acute issues. Patient's fingersticks have remained less than 150 on most checks. We will continue with current coverage. Qualifiers: Diabetes mellitus salvage determiner insulin use: without half-way use Diabetes mellitus complication status: without complication Qualified Code(s): E11.9 - Type 2 diabetes mellitus without complications (3) Hypertension Current Visit: Yes Status: Acute Assessment and plan: Vital signs are stable. We will continue with current medications. Qualifiers: Hypertension type: essential hypertension Qualified Code(s): I10 - Essential (primary) hypertension - Time Spent With Patient less than 15 minutes - Subjective Interval history: Patient currently appears relaxed and denies any discomforts or shortness of breath. Patient states he continues to have moderate weakness of bilateral lower extremities but that he feels that is improving. Patient states that he continues to have some desensitization to his right lower leg and continues to have some radicular symptoms with pain to the right hip. Patient progressing well with physical therapy. - Constitutional Vitals: Temp Pulse Resp BP Pulse Ox 98.7 F 66 16 131/71 93 04/07/18 07:33 04/07/18 07:33 04/07/18 07:33 04/07/18 07:33 04/07/18 07:33 General appearance: Present: cooperative, pleasant, answers questions appropriately - Head Head exam: Present: atraumatic, normocephalic - Eye Eye exam: Present: PERRL, conjuntiva pink, sclera anicteric Pupils: Present: PERRL - Neck Neck exam general surgery: Present: supple, trachea midline. Absent: lymphadenopathy - Respiratory Respiratory exam: Present: CTAB. Absent: accessory muscle use, rales, rhonchi, wheezes - Cardiovascular Cardiovascular exam: Present: RRR, +S1, +S2. Absent: diastolic murmur, gallop, rubs, systolic murmur - GI/Abdominal GI/Abdominal exam: Present: normal bowel sounds, soft, no peritoneal signs. Absent: distended, tenderness - Extremities Exam Extremities exam: Present: warm, radial pulses palpable and symmetrical. Absent : calf tenderness, cyanotic, pedal edema - Back Exam Additional comments: Midline lumbar incision appears dry and intact - Neurological Exam Neurological exam: Present: CN II-XII intact, oriented X3. Absent: pronater drift, facial droop, speech deficit Additional comments: Patient with slight weakness to bilateral extremities, requiring him to utilize a wheelchair for his main mobilization. Patient continues to have moderate weakness to bilateral lower extremities at 4/5. Noted right foot drop with dorsiflexion of 1/5. Slight decrease in sensation noted to right anterior lateral leg. - Skin Skin exam: Present: dry, intact Internal Medicine: Result - Labs CBC & Chem 7: 04/05/18 04:55 04/05/18 04:55 - ABG Interpretation ABG results: PT/INR, D-dimer PT 15.7 Seconds (9.4-12.1) H 03/27/18 09:10 Consult Discharge Plan - Plan Referrals: Tommy Ramos DO [Primary Care Provider] -
[2018-04-07] MEDS: Acetaminophen 325 MG TABLET PO PRN (10:09)
[2018-04-07] MEDS: tiZANidine 4 MG TABLET PO PRN (10:10)
--- NOTE | 2018-04-07 15:42 | Psychological Evaluation ---
Date of Encounter: 04/07/18 Time of Encounter: 09:00 History of Present Illness History of present illness: Mr. Lewis is a 63 year old male underwent lumbar fusion L2-6. Has weakness in right leg and right UE tremors. Past Medical History Medical history: Patient noted pinch nerve in his back that took a very long time to heal. - Psychiatric History Additional Psychiatric History: Patient has past history of counseling (10-12 years ago) regarding marital issues. Home Medications and Allergies 3 Allergy/AdvReac Type Severity Reaction Status Date / Time SAM Inhibitors Allergy Unknown Cough Verified 03/27/18 00:21 amlodipine [From [facility]] Allergy Swelling Verified 03/27/18 00:21 of Lip/Tongue/Throat gabapentin Allergy Hallucinati Verified 03/27/18 00:21 ng Social History - Social History Social History: Patient is 1 X and currently 18 years ( 30 year relationship). Patient has 2 step children and 4 grandchildren out of state. Cognitive/Emotional Assessment - Cognitive Ability Abstract Thinking Ability: No Deficits Noted Attention Span Ability: Capable of Focused Attention, Capable of Sustained Attention Language Function Ability: No Deficits Noted Verbal Communication Ability: Conversational Style Problem Solving Ability: Able To Solve Complex Problems Level of Alertness: Alert Memory Description: Immediate Intact, Canoe Inspector Final Intact, Working Intact, Semantic Intact Orientation: Person, Place, Time, Name, Age, Date of , Day of Month, Day of Week, Month, Year, Time of Day Visual Spatial Deficit: No Deficits Noted Ability to Follow Directions: Good Speech Pattern: Normal rate Thought Process: Intact, Logical Calculations: Able to do serial 7's from 100 (% digits forward, 4 digits backward; 3/3 words after repetition, 2/3 then 3/3 with catagory cue after 5min ; therese to spell WORLD forward and backward) - Emotional Status Mood Description: Anxious Affect Description: Blunted Coping Ability: Verbalizes positive coping skills (Patient reported mood "not to bad". Initially, felt uncomfortable with physical weakness and fear of knee buckling when ambulating. Currently feels more comfortable and realizes neds to be patient with the recovery process. Noted to readjust and complain of discomfort in the WC. Reports seep as varaible due to feeling physiclly "uncomfortable" and needing to move. Sonal SI/HI.) Assessment & Plan - Treatment Plan Treatment Plan/Recommendations: Dx: Adjustment Disorder with Anxiety - No therapy recommended Procedures - Participants Therapy Participant: Patient - Session Time Session Start Time: 09:00 Session Stop Time: 09:30
[2018-04-08] MEDS: Acetaminophen 325 MG TABLET PO PRN ×2 (01:01→08:04)
[2018-04-08] MEDS: *HR* Heparin 5,000 UNIT/ML VIAL SQ SCH ×2 (05:59→16:35)
[2018-04-08] MEDS: tiZANidine 4 MG TABLET PO PRN (06:45)
[2018-04-08] MEDS: Aspirin 81 MG TAB.CHEW PO SCH (08:04)
[2018-04-08] MEDS: *HR* Metformin 500 MG TABLET PO SCH ×2 (08:04→16:35)
[2018-04-08] MEDS: Multivit/Ca/Min/Fe/FA 1 TAB TABLET PO SCH (08:04)
[2018-04-08] MEDS: Sennosides 8.6 MG TABLET PO SCH ×2 (08:05→20:40)
--- NOTE | 2018-04-08 11:37 | Internal Med Progress Note ---
Date of Encounter: 04/08/18 Time of Encounter: 11:35 - Assessment and plan (1) S/P spinal fusion Current Visit: Yes Status: Acute Assessment and plan: No acute issues. Patient's lumbar incision remains healthy and appears to be healing well. Patient continues to have moderate weakness to bilateral lower extremities continues to show right foot drop. Patient also states that he continues to have some decreased sensation to the right anterior lateral leg. No acute neurological deficits noted since surgery and patient had follow-up with neurosurgery yesterday. No new orders received them patient is to continue with physical therapy.. Patient states he continues to have acute radicular symptoms of pain that radiates down the right hip. Patient states that his strength and physical therapy has been progressing well. (2) Diabetes type 2, controlled Current Visit: Yes Status: Chronic Assessment and plan: No acute issues. Patient's fingersticks have remained less than 150 on most checks. We will continue with current coverage. Qualifiers: Diabetes mellitus terminal block assembler insulin use: without terminal block assembler use Diabetes mellitus complication status: without complication Qualified Code(s): E11.9 - Type 2 diabetes mellitus without complications (3) Hypertension Current Visit: Yes Status: Acute Assessment and plan: Vital signs are stable. We will continue with current medications. Qualifiers: Hypertension type: essential hypertension Qualified Code(s): I10 - Essential (primary) hypertension - Time Spent With Patient less than 15 minutes - Subjective Interval history: Patient currently appears relaxed and denies any discomforts or shortness of breath. Patient states he continues to have moderate weakness of bilateral lower extremities but that he feels that it continues to improve. Patient states that he continues to have some desensitization to his right lower leg and continues to have some radicular symptoms with pain to the right hip. She had a follow-up with neurosurgery yesterday and reported his continued postoperative symptoms. No further treatment was ordered. Patient progressing well with physical therapy. - Constitutional Vitals: Temp Pulse Resp BP Pulse Ox 97.6 F 76 16 110/60 94 04/08/18 07:31 04/08/18 07:31 04/08/18 07:31 04/08/18 07:31 04/08/18 07:31 General appearance: Present: cooperative, A&O X 3, pleasant, answers questions appropriately - Head Head exam: Present: atraumatic, normocephalic - Eye Eye exam: Present: PERRL, conjuntiva pink, sclera anicteric Pupils: Present: PERRL - Neck Neck exam general surgery: Present: supple, trachea midline. Absent: lymphadenopathy - Respiratory Respiratory exam: Present: CTAB. Absent: accessory muscle use, rales, rhonchi, wheezes - Cardiovascular Cardiovascular exam: Present: RRR, +S1, +S2. Absent: diastolic murmur, gallop, rubs, systolic murmur - GI/Abdominal GI/Abdominal exam: Present: normal bowel sounds, soft, no peritoneal signs. Absent: distended, tenderness - Extremities Exam Extremities exam: Present: warm, radial pulses palpable and symmetrical. Absent : calf tenderness, cyanotic, pedal edema - Back Exam Additional comments: Patient has a midline lumbar incision appears dry and intact. No erythema or ecchymosis noted - Neurological Exam Neurological exam: Present: CN II-XII intact, oriented X3. Absent: pronater drift, facial droop, speech deficit Additional comments: Patient continues to have slight bilateral lower extremity weakness with bilateral leg muscle strength at 4/5. Noted continue slight right foot drop. No hyperreflexia noted. Continued complaint of slight decreased sensation to right anterior leg. - Skin Skin exam: Present: dry, intact Internal Medicine: Result - Labs CBC & Chem 7: 04/05/18 04:55 04/05/18 04:55 - ABG Interpretation ABG results: PT/INR, D-dimer PT 15.7 Seconds (9.4-12.1) H 03/27/18 09:10 Consult Discharge Plan - Plan Referrals: Tommy Ramos DO [Primary Care Provider] -
[2018-04-08] MEDS: traMADol 50 MG TABLET PO PRN ×2 (12:20→20:40)
[2018-04-09] MEDS: *HR* Heparin 5,000 UNIT/ML VIAL SQ SCH (05:05)
[2018-04-09] MEDS: traMADol 50 MG TABLET PO PRN (05:05)
[2018-04-09] MEDS: Acetaminophen 325 MG TABLET PO PRN (07:07)
[2018-04-09 07:31] VITALS: BP 153/82
[2018-04-09] MEDS: *HR* Metformin 500 MG TABLET PO SCH (08:24)
[2018-04-09] MEDS: Sennosides 8.6 MG TABLET PO SCH (08:24)
[2018-04-09] MEDS: Multivit/Ca/Min/Fe/FA 1 TAB TABLET PO SCH (08:24)
[2018-04-09] MEDS: tiZANidine 4 MG TABLET PO PRN (08:25)
[2018-04-09] MEDS: Aspirin 81 MG TAB.CHEW PO SCH (08:25)
--- NOTE | 2018-04-09 09:41 | Discharge Summary ---
Orders not resulted at time of discharge: Pending orders 04/09/18 07:00 Accucheck [POC Glucometer Test] [POC] 69904/10/18 07:00 Accucheck [POC Glucometer Test] [POC] 69904/11/18 07:00 Accucheck [POC Glucometer Test] [POC] 69904/12/18 04:00 Basic Metabolic Panel MO Complete Blood Count [HEME] MO 04/12/18 07:00 Accucheck [POC Glucometer Test] [POC] 69904/13/18 07:00 Accucheck [POC Glucometer Test] [POC] 69904/14/18 07:00 Accucheck [POC Glucometer Test] [POC] 69904/15/18 07:00 Accucheck [POC Glucometer Test] [POC] 69904/16/18 07:00 Accucheck [POC Glucometer Test] [POC] 69904/17/18 07:00 Accucheck [POC Glucometer Test] [POC] 69904/18/18 07:00 Accucheck [POC Glucometer Test] [POC] 69904/19/18 04:00 Basic Metabolic Panel MO Complete Blood Count [HEME] MO 04/19/18 07:00 Accucheck [POC Glucometer Test] [POC] 69904/20/18 07:00 Accucheck [POC Glucometer Test] [POC] 69904/21/18 07:00 Accucheck [POC Glucometer Test] [POC] 69904/22/18 07:00 Accucheck [POC Glucometer Test] [POC] 69904/23/18 07:00 Accucheck [POC Glucometer Test] [POC] 69904/24/18 07:00 Accucheck [POC Glucometer Test] [POC] 69904/25/18 07:00 Accucheck [POC Glucometer Test] [POC] 69904/26/18 04:00 Basic Metabolic Panel MO Complete Blood Count [HEME] MO 04/26/18 07:00 Accucheck [POC Glucometer Test] [POC] 69904/27/18 07:00 Accucheck [POC Glucometer Test] [POC] 69904/28/18 07:00 Accucheck [POC Glucometer Test] [POC] 0704/29/18 07:00 Accucheck [POC Glucometer Test] [POC] 69904/30/18 07:00 Accucheck [POC Glucometer Test] [POC] 69905/01/18 07:00 Accucheck [POC Glucometer Test] [POC] 69905/02/18 07:00 Accucheck [POC Glucometer Test] [POC] 0705/03/18 04:00 Basic Metabolic Panel MO Complete Blood Count [HEME] MO 05/10/18 04:00 Basic Metabolic Panel MO Complete Blood Count [HEME] MO 05/17/18 04:00 Basic Metabolic Panel MO Complete Blood Count [HEME] MO Date of Encounter: 04/09/18 Time of Encounter: 09:37 - Discharge Diagnosis (1) S/P spinal fusion Priority: Primary Status: Acute Comments: Patient was discharged from [facility] after a lumbar laminectomy and was admitted to this facility for rehabilitation due to deconditioning and weakness to bilateral lower extremities. On admission patient's strength bilateral lower extremities has been 4/5 muscle strength and patient does show a slight hyperreflexia. Midline lumbar incision appears to be healing well with no signs of infection or drainage. Patient has dissipated and physical therapy and has progressed well and has been observed ambulating in z[place] with the use of a walker and assistance. She continues to have difficulty with gait balance and with endurance, and will continue with his physical therapy after discharge with home health PT. Patient continues to have postoperative radicular symptoms of slight pain radiating to his right hip and decreased sensation to the right lateral lower leg. Patient noted to have slight foot drop on the right with a dorsiflexion of 4/5. Patient has stated his pain has been well controlled with the use of current medications. Patient has follow-up with neurosurgery with no additional orders received. He is to follow-up with PCP and continue his scheduled follow-up with neurosurgery. (2) Diabetes type 2, controlled Priority: Secondary Status: Chronic Comments: No acute issues during his stay at this facility. Patient's glucoses have been well controlled with most readings less than 150. Patient is continue with his current diabetic medications after discharge. Recommended follow-up with PCP. Qualifiers: Diabetes mellitus prison insulin use: without intermodal truck driver use Diabetes mellitus complication status: without complication Qualified Code(s): E11.9 - Type 2 diabetes mellitus without complications (3) Hypertension Priority: Secondary Status: Acute Comments: Vital signs remained stable during his stay at this facility. Patient is recommended to follow-up with PCP and continue with his home medications. Qualifiers: Hypertension type: essential hypertension Qualified Code(s): I10 - Essential (primary) hypertension Hospital course: Mr. Lewis is a 63 year old male who was admitted to this facility after having a lumbar laminectomy at [facility]. Patient has had bilateral lower extremity weakness secondary to his lumbar stenosis and continues to have a 4/5 muscle strength bilateral lower extremities. Patient continues to have postoperative radicular symptoms of a slight pain radiating down the right hip and paresthesia to the right lateral lower leg. Midline lumbar surgical incision appears dry and intact and healing well. Patient has dissipated and physical therapy and has progressed well. Patient has been observed ambulating with the use of a walker and assistance but continues to have difficulty with gait balance and endurance. Pain is been well controlled with current medications. Patient's diabetes has been well-controlled during his stay with most glucose readings less than 150. Vital signs have remained stable. Patient is recommended to continue follow-up with physical therapy with home health. Patient is to follow-up with PCP and neurosurgeon. Discharge discussed with: patient Time spent discussing smoking cessation with patient: 3 to 10 minutes - Time Spent with Patient Total time spent providing and/or coordinating discharge services: Less than 30 minutes - Discharge Medications Allergies/Adverse Reactions: 3 Allergy/AdvReac Type Severity Reaction Status Date / Time SAM Inhibitors Allergy Unknown Cough Verified 03/27/18 00:21 amlodipine [From [facility]] Allergy Swelling Verified 03/27/18 00:21 of Lip/Tongue/Throat gabapentin Allergy Hallucinati Verified 03/27/18 00:21 ng Date of admission: 03/26/18 18:40 Primary care physician: Tommy Ramos DO Consults: 03/26/18 19:36 Consult to Occupational Therapy [CONS] Routine Comment: Evaluate, develop and implement POC Reason for Consult: Lumbar Fusion 03/23 Does patient have active BEDREST order?: No Is patient medically & hemodynamically stable?: Yes Consult to Physical Therapy [CONS] Routine Comment: Evaluate, develop and implement POC Reason for Consult: Lumbar Fusion 03/23 Does patient have active BEDREST order?: No Is patient medically & hemodynamically stable?: Yes Consult to Recreational Therapy [CONS] Routine Comment: Evaluate, develop and implement POC Consult to B[employer] Paving [employer] [CONS] Routine Reason for SW Consult: Lumbar Fusion 03/2304/05/18 14:02 Consult to Psychology [CONS] Routine Consulting Provider: Sonal Alba Reason for Consult: Possible adjustment disorder Call Completed: No Discharging clinician: Jose Chin - Constitutional Vitals: Temp Pulse Resp BP Pulse Ox 97.6 F 74 16 153/82 97 04/09/18 07:30 04/09/18 07:30 04/09/18 07:30 04/09/18 07:30 04/09/18 07:30 General appearance: Present: cooperative, A&O X 3, pleasant, answers questions appropriately - Head Head exam: Present: atraumatic, normocephalic - Eye Eye exam: Present: PERRL, conjuntiva pink, sclera anicteric Pupils: Present: PERRL - Neck Neck exam general surgery: Present: supple, trachea midline. Absent: lymphadenopathy - Respiratory Respiratory exam: Present: CTAB. Absent: accessory muscle use, rales, rhonchi, wheezes - Cardiovascular Cardiovascular exam: Present: RRR, +S1, +S2. Absent: diastolic murmur, gallop, rubs, systolic murmur - GI/Abdominal GI/Abdominal exam: Present: normal bowel sounds, soft, no peritoneal signs. Absent: distended, tenderness - Extremities Exam Extremities exam: Present: warm, radial pulses palpable and symmetrical. Absent : calf tenderness, cyanotic, pedal edema - Back Exam Additional comments: Midline lumbar surgical incision appears dry and intact and healing well. - Neurological Exam Neurological exam: Present: CN II-XII intact, oriented X3. Absent: pronater drift, facial droop, speech deficit Additional comments: Patient continues to have postoperative radicular symptoms of pain to his right hip and slight paresthesia to the right lateral lower leg with decreased sensation to sharp. Continued slight weakness to bilateral lower extremities with muscle strength at 4/5 and noted slight right drop foot with dorsiflexion of 4/5 - Skin Skin exam: Present: dry, intact - Patient Status Disposition: Home Health Service Condition: Good Functional capacity at discharge: uses cane/walker Overall status at discharge: patient is progressing back to baseline - Discharge Instructions Follow Up With: Tommy Ramos, [Primary Care Provider] - - Diet and Activity Activity: ambulate only with your walker, as per physical therapy Diet: low fat, low cholesterol, low salt diet
--- NOTE | 2018-04-09 11:23 | Physician Discharge Referral ---
Home Health/Hosp Referral Info Transfer to: Home Health Provider in Charge Post Discharge: PCP - Diagnosis (1) S/P spinal fusion Priority: Primary Status: Acute (2) Diabetes type 2, controlled Priority: Secondary Status: Chronic (3) Hypertension Priority: Secondary Status: Acute - Respiratory Orders Smoking Cessation: Smoking cessation has been advised. For more information, call the [place] Tobacco Quit Line at 6-203-TQMJ-NOW. - Diet/Nutrition Diet/Nutrition Orders: Regular, No Added Salt (GAYATRI) - Activity Activity Orders: Up ad jane, Walker - Services Needed Following services are medically necessary services: Nursing, Physical Therapy - Transfer Medications Allergies/Adverse Reactions: 3 Allergy/AdvReac Type Severity Reaction Status Date / Time SAM Inhibitors Allergy Unknown Cough Verified 03/27/18 00:21 amlodipine [From [facility]] Allergy Swelling Verified 03/27/18 00:21 of Lip/Tongue/Throat gabapentin Allergy Hallucinati Verified 03/27/18 00:21 ng Certification: Further, I certify that my clinical findings support that this patient is homebound (i.e. absences from home require considerable and taxing effort and are for medical reasons or jewish services or infrequently or short duration when for other reasons) because: Homebound Reason: Patient requires assistance of a person or device to safely leave home, Leaving home requires considerable and taxing effort due to condition Attestation: My signature below is to certify that this patient is under my care and that I, or nurse practitioner, or a physician's offset press assistant working with me, has a face-to -face encounter with this patient.
== END 2018-04-09 12:30 | disposition home health service (06) | DRG 950 ==
LOC: INPGRE 18:40